=== PATIENT | female | born 1970 | race Caucasian/White ===

== ENCOUNTER → 2019-09-10 | Emergency (ER) | payer SELFPAY ==
[~2019-09-10] VITALS: Ht 175.3 cm; Wt 127.0 kg
[~2019-09-10] MED LIST: COCAINE HCL 4% TOP SOL 4ML TOP ONE; HYDROcodone-ACET 10/325MG TAB PO ONE; HYDROcodone-ACET 5/325MG TAB PO ONE; NIFEdipine 10 MG CAP ONE; NIFEdipine 10 MG CAP PO ONE; hydrALAZINE HCL 25 MG TAB PO ONE
[2019-09-10 06:30] VITALS: BP 121/85
== END | disposition home or self-care (01) ==
LOC: ER 03:39
DX: R04.0 Epistaxis (principal); I10 Essential (primary) hypertension
CPT/HCPCS: 30901

== ENCOUNTER → 2019-09-12 | Emergency (ER) | payer SELFPAY ==
[~2019-09-12] VITALS: Ht 175.3 cm; Wt 145.1 kg
[~2019-09-12] MED LIST changes: -COCAINE HCL 4% TOP SOL 4ML TOP ONE; -HYDROcodone-ACET 10/325MG TAB PO ONE; -HYDROcodone-ACET 5/325MG TAB PO ONE; -NIFEdipine 10 MG CAP ONE; -NIFEdipine 10 MG CAP PO ONE; +cloNIDine HCL 0.1 MG TAB PO ONE; +hydrALAZINE HCL 10 MG TAB PO ONE; -hydrALAZINE HCL 25 MG TAB PO ONE
[2019-09-12 22:00] VITALS: BP 115/75
== END | disposition home or self-care (01) ==
LOC: ER 18:54
DX: R04.0 Epistaxis (principal); I10 Essential (primary) hypertension

== ENCOUNTER 2019-09-17 21:04 | Emergency (ER) | payer MEDICAID, OTHER ==
[~2019-09-17] VITALS: Ht 172.7 cm; Wt 113.4 kg
[2019-09-17 21:45] LABS: Basophils # (auto) 0.1 10 ^3/uL (0-0.2); Basophils % (auto) 0.7 % (0.0-2.0); Eosinophils # (auto) 0.1 10 ^3/uL (0-0.8); Eosinophils % (auto) 1.3 % (0.0-7.0); Hematocrit 28.9 % (36.0-46.0); Hemoglobin 9.6 g/dL (12.2-16.2); Lymphocytes # (auto) 1.8 10 ^3/uL (0.4-5.4); Lymphocytes % (auto) 19.6 % (10.0-50.0); Mean Corpuscular Hemoglobin 31.6 pg (28.0-32.0); Mean Corpuscular Hgb Conc. 33.2 g/dL (32.0-36.0); Mean Corpuscular Volume 95.1 fL (80.0-100.0); Monocytes # (auto) 0.5 10 ^3/uL (0-1.3); Monocytes % (auto) 5.4 % (0.0-12.0); Neutrophils # (auto) 6.6 10 ^3/uL (1.6-8.6); Platelet Count (auto) 294 10^3/uL (140-450); Red Blood Cells 3.04 10^6/uL (4.0-5.20); Red Cell Distribution Width 16.5 % (11.8-14.3)
[2019-09-17] MEDS ORDERED: LABETALOL HCL 5 MG/ML 4ML SYRINGE IV ONE (21:45)
[2019-09-17 21:54] LABS: INR 1.04 (0.9-1.15); Partial Thromboplastin Time 31.1 sec (23.64-32.05)
[2019-09-17 22:02] LABS: Albumin 3.9 g/dL (3.4-5.0); BUN/Creatinine Ratio 12.6; Calcium 8.9 mg/dL (8.5-10.1)
[2019-09-17 22:04] LABS: Bilirubin, Total 0.2 mg/dL (0.2-1.0); Total Protein 7.8 g/dL (6.4-8.2)
[2019-09-17] MEDS ORDERED: ACETAMINOPHEN 500 MG TAB PO ONE (23:45)
[2019-09-18 00:16] VITALS: BP 125/82
== END 2019-09-18 00:30 | disposition home or self-care (01) ==
LOC: EDBD 21:04 → ER 21:06
DX: R04.0 Epistaxis (principal); I10 Essential (primary) hypertension
CPT/HCPCS: 36415; 80053; 85025; 85610; 85730; 99285; J3490

== ENCOUNTER 2021-05-02 09:17 | Emergency (ER) | payer MEDICAID ==
[~2021-05-02] VITALS: Ht 172.7 cm; Wt 163.3 kg
[2021-05-02] MEDS ORDERED: cloNIDine HCL 0.1 MG TAB PO ONE (10:00)
[2021-05-02] MEDS ORDERED: PRED20TA2 PO (18:09)
[2021-05-02] MEDS ORDERED: ALBU108A5 IN (18:09)
[2021-05-02] MEDS ORDERED: AZIT1POW12 PO (18:09)
[2021-05-02 18:46] VITALS: BP 175/72
== END 2021-05-02 18:50 | disposition home or self-care (01) ==
LOC: ER 09:17
DX: J20.9 Acute bronchitis, unspecified (principal); I10 Essential (primary) hypertension; E03.9 Hypothyroidism, unspecified; Z20.822 Contact with and (suspected) exposure to COVID-19
CPT/HCPCS: 36415; 71046; 87426; 93005

== ENCOUNTER 2022-04-17 17:12 | Inpatient (IN) | payer MEDICAID ==
[~2022-04-17] VITALS: Ht 170.2 cm; Wt 164.1 kg
[~2022-04-17 17:12] MED LIST changes: +ALBU108A5 IN; +AZIT1POW12 PO; +PRED20TA2 PO; -cloNIDine HCL 0.1 MG TAB PO ONE; -hydrALAZINE HCL 10 MG TAB PO ONE
[2022-04-17 21:25] LABS: Hemoglobin 11.8 g/dL (12.2-16.2)
[2022-04-17 21:27] LABS: Hematocrit 37.1 % (36.0-46.0); Mean Corpuscular Hemoglobin 28.4 pg (28.0-32.0); Mean Corpuscular Hgb Conc. 31.8 g/dL (32.0-36.0); Mean Corpuscular Volume 89.1 fL (80.0-100.0); Red Blood Cells 4.17 10^6/uL (4.0-5.20); Red Cell Distribution Width 16.7 % (11.8-14.3); White Blood Cell 28.6 10^3/uL (4.4-10.8)
[2022-04-17 21:38] LABS: Alanine Aminotransferase 40 U/L (13-56); Albumin 2.9 g/dL (3.4-5.0); Alkaline Phosphatase 141 U/L (45-117); Anion Gap 10 (5-15); Aspartate Aminotransferase 33 U/L (15-37); BUN/Creatinine Ratio 32.5; Basophils % (manual) 0 (0.0-2.0); Bilirubin, Total 0.5 mg/dL (0.2-1.0); Blast Cells 0; Blood Urea Nitrogen 66 mg/dL (7-18); Calcium 9.5 mg/dL (8.5-10.1); Carbon Dioxide 22 mmol/L (21-32); Chloride 106 mmol/L (98-107); GFR African American 33 mL/min; GFR Non-African American 28 mL/min; Glucose 99 mg/dL (74-106); Potassium 4.9 mmol/L (3.5-5.1); Promyelocytes % 0; Reactive Lymphocytes 0; Sodium 138 mmol/L (136-145); Total Protein 8.2 g/dL (6.4-8.2)
[2022-04-17 22:08] LABS: Band Neutrophils % (manual) 10; Eosinophils % (manual) 1 (0-7); Lymphocytes % (manual) 13 (10.0-50.0); Metamyelocytes % 1; Monocytes % (manual) 5 (0-12); Myelocytes % 6
[2022-04-17 22:21] LABS: CRP High Sensitivity > 19.0 mg/dL (< 0.3)
[2022-04-18] MEDS ORDERED: SODIUM CHLORIDE 0.9% 1,000 ML IV ONE (04:00)
[2022-04-18] MEDS ORDERED: VANCOMYCIN 1GM/250ML 250 ML IV ONE (04:00)
[2022-04-18] MEDS ORDERED: ACETAMINOPHEN 325 MG TAB PO PRN (05:00)
[2022-04-18] MEDS: HYDROcodone-ACET 5/325MG TAB PO PRN ×2 (05:32→18:01)
[2022-04-18] MEDS ORDERED: GABAPENTIN 300 MG CAP PO SCH (06:00)
[2022-04-18] MEDS: CLINDAMYCIN 600MG IV 50 ML IV SCH ×3 (07:17→23:39)
[2022-04-18] MEDS: LEVOTHYROXINE SODIUM 50 MCG TAB PO SCH (07:44)
[2022-04-18] MEDS: cefTRIAXone 1GM/50ML D5W 50 ML IV SCH (09:08)
[2022-04-18] MEDS ORDERED: LISINOPRIL 20 MG TAB PO SCH (10:00)
[2022-04-18] MEDS ORDERED: amLODIPine BESYLATE 5 MG TAB PO SCH (10:00)
[2022-04-18] MEDS ORDERED: FUROSEMIDE 20 MG TAB PO SCH (10:00)
[2022-04-18] MEDS: PANTOPRAZOLE 40 MG TAB PO SCH (10:13)
[2022-04-18] MEDS: METOPROLOL SUCCINATE XL 50 MG TAB PO SCH (10:13)
[2022-04-18] MEDS ORDERED: cloNIDine HCL 0.1 MG TAB PO PRN (13:15)
[2022-04-18] MEDS: GABAPENTIN 300 MG CAP PO SCH ×2 (14:04→23:39)
[2022-04-18] MEDS: BUMETANIDE 2.5mg/10ml (0.25 mg/ml) INJ IV SCH (18:03)
[2022-04-18 19:05] LABS: Alcohol, Urine < 3.0 mg/dL (0-10); Amphetamine Screen, Urine NEGATIVE (NEGATIVE); Barbiturate Scree,Urine NEGATIVE (NEGATIVE); Benzodiazephine Screen, Urine NEGATIVE (NEGATIVE); Cannabinoid Screen, Urine POSITIVE (NEGATIVE); Cocaine Screen, Urine NEGATIVE (NEGATIVE); Phencyclidine Screen, Urine NEGATIVE (NEGATIVE)
[2022-04-18 19:11] LABS: Opiate Scree,Urine NEGATIVE (NEGATIVE)
[2022-04-18 19:24] LABS: Urine Specific Gravity 1.012 (1.001-1.035)
[2022-04-18 19:25] LABS: Urine Blood Negative /uL (Negative)
[2022-04-18] MEDS ORDERED: ATORVASTATIN 20 MG TAB PO SCH (22:00)
[2022-04-18] MEDS: ATORVASTATIN 20 MG TAB PO SCH (23:39)
[2022-04-18] MEDS: POTASSIUM CHLORIDE 8 MEQ TAB PO SCH (23:40)
[2022-04-18 23:45] VITALS: BP 113/72
[2022-04-19] VITALS: BP 113/72
[2022-04-19] MEDS: HYDROcodone-ACET 5/325MG TAB PO PRN ×3 (03:04→20:54)
[2022-04-19 05:00] VITALS: BP 96/59
[2022-04-19] MEDS: BUMETANIDE 2.5mg/10ml (0.25 mg/ml) INJ IV SCH ×2 (06:00→18:00)
[2022-04-19 06:45] LABS: Hematocrit 31.9 % (36.0-46.0); Hemoglobin 10.1 g/dL (12.2-16.2); Mean Corpuscular Hemoglobin 28.4 pg (28.0-32.0); Mean Corpuscular Hgb Conc. 31.6 g/dL (32.0-36.0); Mean Corpuscular Volume 89.8 fL (80.0-100.0); Red Blood Cells 3.56 10^6/uL (4.0-5.20); Red Cell Distribution Width 15.8 % (11.8-14.3); White Blood Cell 28.9 10^3/uL (4.4-10.8)
[2022-04-19 06:58] LABS: Basophils % (manual) 0 (0.0-2.0); Blast Cells 0; Eosinophils % (manual) 0 (0-7); Myelocytes % 0; Promyelocytes % 0; Reactive Lymphocytes 0
[2022-04-19 07:04] LABS: Calcium 8.6 mg/dL (8.5-10.1); Potassium 4.8 mmol/L (3.5-5.1)
[2022-04-19 07:09] LABS: Albumin 2.6 g/dL (3.4-5.0); BUN/Creatinine Ratio 36.7; Bilirubin, Total 0.4 mg/dL (0.2-1.0); Total Protein 7.1 g/dL (6.4-8.2)
[2022-04-19] MEDS: LEVOTHYROXINE SODIUM 50 MCG TAB PO SCH (07:13)
[2022-04-19] MEDS: GABAPENTIN 300 MG CAP PO SCH ×3 (07:13→22:38)
[2022-04-19] MEDS: CLINDAMYCIN 600MG IV 50 ML IV SCH ×3 (07:13→22:37)
[2022-04-19 07:15] LABS: Band Neutrophils % (manual) 8; Lymphocytes % (manual) 16 (10.0-50.0); Metamyelocytes % 3; Monocytes % (manual) 9 (0-12)
[2022-04-19 08:55] VITALS: BP 117/69
[2022-04-19] MEDS: METOPROLOL SUCCINATE XL 50 MG TAB PO SCH (09:23)
[2022-04-19] MEDS: PANTOPRAZOLE 40 MG TAB PO SCH (09:23)
[2022-04-19] MEDS: cefTRIAXone 1GM/50ML D5W 50 ML IV SCH (09:24)
[2022-04-19] MEDS: ENOXAPARIN SOD 40 MG/0.4 ML SYRINGE SC SCH (09:24)
[2022-04-19] MEDS: POTASSIUM CHLORIDE 8 MEQ TAB PO SCH ×2 (09:25→22:38)
[2022-04-19] MEDS ORDERED: BUMETANIDE 2.5mg/10ml (0.25 mg/ml) INJ IV ONE (12:15)
[2022-04-19 12:52] VITALS: BP 164/92
[2022-04-19 16:54] VITALS: BP 107/73
[2022-04-19 22:00] VITALS: BP 100/58
[2022-04-19] MEDS: MUPIROCIN 2% OINT 15gm or 22gm FOR MRSA NARES EACHNOSTRI SCH (22:37)
[2022-04-19] MEDS: ATORVASTATIN 20 MG TAB PO SCH (22:38)
[2022-04-19] MEDS: ONDANSETRON HCL 4 MG/2 ML VIAL IV PRN (22:47)
[2022-04-20] MEDS ORDERED: IBUP800T27 PO (00:18)
[2022-04-20] MEDS ORDERED: ATOR80TA PO (00:18)
[2022-04-20] MEDS ORDERED: GABA100C9 PO (00:18)
[2022-04-20] MEDS ORDERED: HYDR10TA26 PO (00:18)
[2022-04-20] MEDS ORDERED: POTA-220 PO (00:18)
[2022-04-20] MEDS ORDERED: TIZA4TAB9 PO (00:18)
[2022-04-20] MEDS ORDERED: HYDR-4798 PO (00:18)
[2022-04-20] MEDS ORDERED: MET25T PO (00:18)
[2022-04-20] MEDS ORDERED: LEVO150T10 PO (00:18)
[2022-04-20] MEDS ORDERED: HYDR12.56 PO (00:18)
[2022-04-20] MEDS ORDERED: LISI40TA11 PO (00:18)
[2022-04-20] MEDS: HYDROcodone-ACET 5/325MG TAB PO PRN ×4 (00:53→17:59)
[2022-04-20 05:00] VITALS: BP 101/57
[2022-04-20] MEDS: LEVOTHYROXINE SODIUM 50 MCG TAB PO SCH (06:45)
[2022-04-20] MEDS: CLINDAMYCIN 600MG IV 50 ML IV SCH ×3 (06:45→21:06)
[2022-04-20] MEDS: BUMETANIDE 2.5mg/10ml (0.25 mg/ml) INJ IV SCH ×2 (06:45→18:02)
[2022-04-20] MEDS: GABAPENTIN 300 MG CAP PO SCH ×3 (06:45→21:11)
[2022-04-20 07:20] LABS: Hematocrit 31.4 % (36.0-46.0); Mean Corpuscular Hemoglobin 28.4 pg (28.0-32.0); Mean Corpuscular Hgb Conc. 31.7 g/dL (32.0-36.0); Mean Corpuscular Volume 89.5 fL (80.0-100.0); Red Blood Cells 3.51 10^6/uL (4.0-5.20); Red Cell Distribution Width 15.9 % (11.8-14.3); White Blood Cell 23.8 10^3/uL (4.4-10.8)
[2022-04-20 07:25] LABS: Basophils % (manual) 0 (0.0-2.0); Blast Cells 0; Promyelocytes % 0; Reactive Lymphocytes 0
[2022-04-20 07:38] LABS: BUN/Creatinine Ratio 35.9; Calcium 8.5 mg/dL (8.5-10.1)
[2022-04-20 09:02] VITALS: BP 102/51
[2022-04-20] MEDS ORDERED: DULO20CA PO (09:05)
[2022-04-20] MEDS: MUPIROCIN 2% OINT 15gm or 22gm FOR MRSA NARES EACHNOSTRI SCH ×2 (09:08→21:05)
[2022-04-20] MEDS: cefTRIAXone 1GM/50ML D5W 50 ML IV SCH (09:08)
[2022-04-20] MEDS: PANTOPRAZOLE 40 MG TAB PO SCH (09:09)
[2022-04-20] MEDS: POTASSIUM CHLORIDE 8 MEQ TAB PO SCH ×2 (09:09→21:06)
[2022-04-20] MEDS: METOPROLOL SUCCINATE XL 50 MG TAB PO SCH (09:09)
[2022-04-20] MEDS: ENOXAPARIN SOD 40 MG/0.4 ML SYRINGE SC SCH (09:10)
[2022-04-20 12:10] LABS: Band Neutrophils % (manual) 20; Eosinophils % (manual) 5 (0-7); Lymphocytes % (manual) 17 (10.0-50.0); Metamyelocytes % 2; Monocytes % (manual) 1 (0-12); Myelocytes % 3
[2022-04-20 13:00] VITALS: BP 115/66
[2022-04-20] MEDS ORDERED: DULoxetine HCL 30 MG CAP PO ONE (14:30)
[2022-04-20 16:55] VITALS: BP 106/71
[2022-04-20] MEDS: ONDANSETRON HCL 4 MG/2 ML VIAL IV PRN (18:08)
[2022-04-20] MEDS: ATORVASTATIN 20 MG TAB PO SCH (21:06)
[2022-04-20] MEDS: MORPHINE SULFATE INJ 2 MG/ml SYRG IV PRN (21:07)
[2022-04-20 22:00] VITALS: BP 118/69
[2022-04-21] MEDS: HYDROcodone-ACET 5/325MG TAB PO PRN ×3 (00:15→17:31)
[2022-04-21] MEDS: MORPHINE SULFATE INJ 2 MG/ml SYRG IV PRN ×2 (04:27→13:10)
[2022-04-21 05:00] VITALS: BP 106/53
[2022-04-21 06:11] LABS: Hematocrit 32.1 % (36.0-46.0); Hemoglobin 10.1 g/dL (12.2-16.2); Mean Corpuscular Hemoglobin 28.6 pg (28.0-32.0); Mean Corpuscular Hgb Conc. 31.6 g/dL (32.0-36.0); Mean Corpuscular Volume 90.4 fL (80.0-100.0); Red Blood Cells 3.55 10^6/uL (4.0-5.20); Red Cell Distribution Width 15.8 % (11.8-14.3); White Blood Cell 20.7 10^3/uL (4.4-10.8)
[2022-04-21] MEDS: BUMETANIDE 2.5mg/10ml (0.25 mg/ml) INJ IV SCH ×2 (06:11→17:31)
[2022-04-21] MEDS: CLINDAMYCIN 600MG IV 50 ML IV SCH ×2 (06:11→13:09)
[2022-04-21] MEDS: GABAPENTIN 300 MG CAP PO SCH ×2 (06:12→13:09)
[2022-04-21] MEDS: LEVOTHYROXINE SODIUM 50 MCG TAB PO SCH (06:13)
[2022-04-21 06:19] LABS: Basophils % (manual) 0 (0.0-2.0); Blast Cells 0; Eosinophils % (manual) 0 (0-7); Myelocytes % 0; Promyelocytes % 0; Reactive Lymphocytes 0
[2022-04-21 06:42] LABS: BUN/Creatinine Ratio 29.8; Calcium 9.3 mg/dL (8.5-10.1); Potassium 4.6 mmol/L (3.5-5.1)
[2022-04-21 08:18] LABS: Band Neutrophils % (manual) 15; Lymphocytes % (manual) 13 (10.0-50.0); Metamyelocytes % 4; Monocytes % (manual) 4 (0-12)
[2022-04-21 09:00] VITALS: BP_SYST 106; BP_SYST 156; BP_DIAS 60; BP_DIAS 66
[2022-04-21] MEDS: cefTRIAXone 1GM/50ML D5W 50 ML IV SCH (09:00)
[2022-04-21] MEDS: PANTOPRAZOLE 40 MG TAB PO SCH (09:01)
[2022-04-21] MEDS: METOPROLOL SUCCINATE XL 50 MG TAB PO SCH (09:01)
[2022-04-21] MEDS: ENOXAPARIN SOD 40 MG/0.4 ML SYRINGE SC SCH (09:01)
[2022-04-21] MEDS: MUPIROCIN 2% OINT 15gm or 22gm FOR MRSA NARES EACHNOSTRI SCH (09:08)
[2022-04-21] MEDS: POTASSIUM CHLORIDE 8 MEQ TAB PO SCH (09:09)
[2022-04-21] MEDS ORDERED: DULoxetine HCL 30 MG CAP PO SCH (10:00)
[2022-04-21] MEDS ORDERED: CLIN300C8 PO (12:57)
[2022-04-21] MEDS ORDERED: BUME2TAB5 PO (12:57)
[2022-04-21] MEDS ORDERED: HYDR-4798 PO (12:57)
[2022-04-21 13:00] VITALS: BP 108/59
[2022-04-21 16:01] VITALS: BP 108/59
[2022-04-21 17:00] VITALS: BP 108/63
== END 2022-04-21 18:00 | disposition home or self-care (01) | DRG 383 ==
LOC: ER 17:12 → OVERFLOW 04-18 05:01 → CENTRAL 04-18 22:43
PROVIDERS: ADMIT Nurse Practitioner; ATTEND Hospitalist
DX: L03.115 Cellulitis of right lower limb (principal); N17.9 Acute kidney failure, unspecified; Z68.43 Body mass index [BMI] 50.0-59.9, adult; E66.01 Morbid (severe) obesity due to excess calories; I10 Essential (primary) hypertension; D72.829 Elevated white blood cell count, unspecified; E78.5 Hyperlipidemia, unspecified; E03.9 Hypothyroidism, unspecified
CPT/HCPCS: 36415; 71045; 80048; 80053; 80061; 80307; 81003; 83036; 83605; 84484; 85007; 85027; 85652; 86141; 87040; 87081; 87426; 93306; 93971; 97163; G0378; J0696; J2405; J3490